=== PATIENT | male | born 1950 | race Caucasian/White ===

== ENCOUNTER 2018-03-10 17:37 | Emergency (ER) | payer MEDICARE, BC ==
[2018-03-10] MEDS ORDERED: NS 0.9% 1000 ML* 2,000 ML IV ONE (18:50)
--- NOTE | 2018-03-10 19:15 | ED ---
Abdominal Pain/Male - HPI Summary HPI Summary: Pt is a 67 y/o M c/o constant lower abdominal pain varying in intensity and bowel problems. He was woken up at 0415 this AM with the Sx. He stated drank bad water 2 weeks prior to visit and has been having Sx since. Associated Sx: bloated, loose bowel, increased frequency. Denies: fever. 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 PSHx: No abd surgeries. He is unable to visit the GI until April. He has been seeing PCP for 2 weeks regarding these problems. Notes he only had an egg and toast to eat today and has produced stool 10x. - History of Current Complaint Chief Complaint: EDAbdPain Stated Complaint: ABD PAIN Time Seen by Provider: 03/10/18 18:49 Hx Obtained From: Patient Onset/Duration: Sudden Onset, Lasting Weeks - 2, Still Present, Worse Since - This AM Timing: Constant Severity Currently: Moderate Pain Intensity: 6 Pain Scale Used: 0-10 Numeric Location: Suprapubic - lower ad, Umbilical Aggravating Factor(s): Food Alleviating Factor(s): OTC Analgesics, Other: - Polmedo berries, Ellis juice Associated Signs And Symptoms: Positive: Other - loose stool. Negative: Fever - Allergies/Home Medications Allergies/Adverse Reactions: Allergies Allergy/AdvReac Type Severity Reaction Status Date / Time Penicillins Allergy Rash Verified 03/10/18 17:42 PMH/Surg Hx/FS Hx/Imm Hx Endocrine/Hematology History: Denies: Hx Diabetes Cardiovascular History: Reports: Hx Hypertension Denies: Hx Congestive Heart Failure Neurological History: Reports: Other Neuro Impairments/Disorders - PSYCH HX Infectious Disease History: No Infectious Disease History: Denies: Traveled Outside the [place] in Last 30 Days - Family History Known Family History: Positive: Hypertension - Social History Occupation: Retired Lives: With Family Alcohol Use: None Substance Use Type: Reports: None Smoking Status (MU): Never Smoked Tobacco Review of Systems Negative: Fever Positive: Abdominal Pain - lower Positive: frequency - 10x today, incontinence - loose stool, other - Loose stool All Other Systems Reviewed And Are Negative: Yes Physical Exam - Summary Physical Exam Summary: Appearance: Well-appearing, Well-nourished, lying in bed comfortably Skin: Warm, dry, no obvious rash Eyes: sclera anicteric, no conjunctival pallor ENT: mucous membranes moist, pharynx appears normal Neck: Supple, nontender Respiratory: Clear to auscultation, no signs of respiratory distress Cardiovascular: Normal S1, S2. No murmurs. Normal distal pulses in tibial and radial bilaterally. small hemmeroid: not thrombosed Abdomen: Soft, nontender, normal active bowel sounds present Musculoskeletal: Normal, Strength/ROM Intact Neurological: A&Ox3, awake and alert, mentation is normal, speech is fluent and appropriate Psychiatric: affect is normal, does not appear anxious or depressed Triage Information Reviewed: Yes Vital Signs On Initial Exam: Initial Vitals Temp Pulse Resp BP Pulse Ox 96.8 F 72 18 156/91 99 03/10/18 17:39 03/10/18 17:39 03/10/18 17:39 03/10/18 17:39 03/10/18 17:39 Vital Signs Reviewed: Yes Diagnostics - Vital Signs Vital Signs Temp Pulse Resp BP Pulse Ox 03/10/18 17:39 96.8 F 72 18 156/91 99 - Laboratory Result Diagrams: 03/10/18 19:05 03/10/18 19:05 Lab Statement: Any lab studies that have been ordered have been reviewed, and results considered in the medical decision making process. Abdominal Pain Fem Course/Dx - Course Course Of Treatment: 67 y/o man with somewhat vague intermittent lower abdominal /rectal discomfort, benign abdominal exam. Stool studies are pending from 2 days ago. He has not had dysenteric symptoms (no fever, watery/bloody diarrhea, crampy pain). His discomfort is mainly a feeling of incomplete emptying. Mainly he seems worried about the possibility of colon cancer. He had a colonoscopy 8 years ago, and I explained the best test for this concern is colonoscopy. We talked about doing a CT scan, but in the absence of a suspicion for bowel obstruction, intra-abdominal infection or other entity that would be shown on CT scan, I did not think this was likely to be helpful, and the patient is in agreement. - Diagnoses Differential Diagnosis/HQI/PQRI: Bowel Obstruction, Constipation, Diverticulitis , Ischemic Bowel Provider Diagnoses: Abdominal pain Discharge - Sign-Out/Discharge Documenting (check all that apply): Patient Departure - Discharge Plan Condition: Good Disposition: HOME Prescriptions: Diphenoxylat/Atrop 2.5-0.025M* [Lomotil TAB*] 1 tab PO QID PRN #20 tab MDD 4 tabs PRN Reason: Diarrhea Patient Education Materials: Abdominal Pain (ED) Referrals: Emeterio Olivarez MD [Primary Care Provider] - Additional Instructions: The best test for suspected colon cancer is a colonoscopy, so followup with the outer diameter grinder is important. If your pain gets much worse or you develop new symptoms like vomiting or fever we should see you back here sooner. - Billing Disposition and Condition Condition: GOOD Disposition: Home
[2018-03-10 19:19] LABS: ABS Basophils 0.1 10^3/ul (0-0.2); ABS Eosinophils 0 10^3/ul (0-0.6); ABS Monocytes 0.8 10^3/ul (0-0.8); ABS Neutrophils 5.1 10^3/ul (1.5-7.7); ABS Nucleated RBC 0 10^3/ul; Eosinophil % 0.4 % (0-6); Hematocrit 43 % (42-52); Hemoglobin 14.8 g/dl (14.0-18.0); Lymphocyte % 14.5 % (25-47); Mean Corpuscular HGB Conc 34 g/dl (31-36); Mean Corpuscular Hemoglobin 31 pg (27-31); Mean Corpuscular Volume 91 fL (80-94); Mean Platelet Volume 9.6 um3 (7.4-10.4); Nucleated Red Blood Cells % 0; Platelet Count 184 10^3/ul (150-450); Red Blood Count 4.72 10^6/ul (4.00-5.40); Red Cell Distribution Width 13 % (10.5-15)
[2018-03-10 19:39] LABS: EGFR Non-African American 95.1 (>60)
[2018-03-10 20:19] VITALS: BP 134/83
== END 2018-03-10 20:18 | disposition home or self-care (01) ==
LOC: ED 17:37
DX: R10.30 Lower abdominal pain, unspecified (principal); Z87.19 Personal history of other diseases of the digestive system; Z88.0 Allergy status to penicillin
CPT/HCPCS: 36415; 80053; 83690; 85025; 96360; 99282

== ENCOUNTER 2019-06-08 03:55 | Emergency (ER) | payer MEDICARE, BC ==
--- OUTSIDE RECORDS SUMMARY | 2019-06-08 04:02 | XMS REPORT | Continuity of Care Document ---
:1950 External Reference #:[id number] Author Name Austin Ash M.D. 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 Onset: 11/24/2010 Emphysematous bleb of lung Emeterio Olivarez M.D.,FACP Onset: 02/11/2015 Note: incidental C-reactive protein abnormal Emeterio Olivarez M.D.,FACP Onset: 02/11/2015 Note: hsCRP Microscopic hematuria Emeterio Olivarez M.D.,FACP Onset: 02/11/2015 Note: had cysto Mixed hyperlipidemia Emeterio Olivarez M.D.,FACP Onset: 12/19/2016 Ex-smoker Emeterio Olivarez M.D.,FACP Onset: 05/09/2018 Anxiety disorder Emeterio Olivarez M.D.,FACP Onset: 05/17/2018 Social History Type Date Description Comments Sex Unknown Tobacco Use Start: Unknown End: Former Cigarette Smoker started at age 14 and Unknown quit cigarettes at age 35 Cigarette Use Pack Years - 20 Smoking Status Reviewed: 10/01/19 Former Cigarette Smoker started at age 14 and quit cigarettes at age 35 ETOH Use 09/29/2016 Denies alcohol use Tobacco Use Start: Unknown End: Patient is a former Unknown smoker Exercise 09/29/2016 Exercises regularly Bikes 30+ miles during Type/Frequency summer. Gym 2-3x/weekly during winter Allergies, Adverse Reactions, Alerts Active Allergies Reaction Severity Comments Date Penicillin Urticaria Moderate 04/04/2018 Inactive Allergies NKDA 02/06/2011 Medications Active Medications SIG Qnty Indications Ordering Provider Date Valsartan-Hydrochloro take one tablet 30tabs Austin Ash, 09/24/2018 thiazide by mouth every M.D. 80-12.5mg day Tablets B-12 1 by mouth every Unknown 1000mcg day over the counter Red Rice Yeast Unknown Immunizations CPT Code Status Date Vaccine Lot # [id number] Given 09/29/2016 Pneumonia Vaccine [id number] 52940 Given 07/01/2014 Pneumococcal Conjugate Vaccine 13 Valent For [id number] Intramuscular Use 38051 Given 07/01/2014 Flu Vaccine Split Virus Preservative Free For [id number] Indiv 3Yr Older [id number] Refused 02/11/2015 Zoster (Zostavax) Vital Signs Date Vital Result Comment 05/27/2019 9:45am Height 65 inches 5'5" Weight 188.00 lb Heart Rate 60 /min BP Systolic Sitting 158 mmHg BP Diastolic Sitting 87 mmHg BMI (Body Mass Index) 31.3 kg/m2 10/15/2018 4:22pm Height 65 inches 5'5" Weight 168.00 lb Heart Rate 75 /min BP Systolic Sitting 152 mmHg BP Diastolic Sitting 87 mmHg Body Temperature 99.1 F BMI (Body Mass Index) 28.0 kg/m2 Results Description No Information Available Procedures Date Code Description Status 03/20/2018 24303508 Colonoscopy Completed 08/03/2010 94337732 Colonoscopy Completed Medical Devices Description No Information Available Encounters Description No Information Available Assessments Date Code Description Provider 05/27/2019 M25.511 Pain in right shoulder Austin Ash M.D. Plan of Treatment 05/27/2019 - Austin Ash M.D.M25.511 Pain in right shoulderComments:Blunt trauma to R shoulder 3 days ago with pain over the area, thanh the AC joint. Minimal skin abrasions, no swelling/bruising. Appears to be a soft tissue injury, but shoulder x-ray advised. Continue rest, local warmth, and analgesics as needed. Functional Status Description No Information Available Mental Status Description No Information Available Referrals Description No Information Available
[2019-06-08] MEDS ORDERED: NS 0.9% 1000 ML** 1,000 ML IV ONE ×2 (04:14→06:09)
[2019-06-08] MEDS ORDERED: Ondansetron INJ* 2 MG/ML VIAL IV ONE (04:28)
[2019-06-08 04:50] LABS: ABS Basophils 0.1 10^3/ul (0-0.2); ABS Eosinophils 0.1 10^3/ul (0-0.6); ABS Lymphocytes 1.7 10^3/ul (1.0-4.8); ABS Monocytes 0.7 10^3/ul (0-0.8); Eosinophil % 0.7 %; Hematocrit 43 % (42-52); Hemoglobin 14.5 g/dL (14.0-18.0); Lymphocyte % 13.8 %; Mean Corpuscular HGB Conc 34 g/dL (31-36); Mean Corpuscular Hemoglobin 31 pg (27-31); Mean Corpuscular Volume 92 fL (80-94); Mean Platelet Volume 9.8 fL (7.4-10.4); Nucleated Red Blood Cells % 0.1; Platelet Count 190 10^3/uL (150-450); Red Blood Count 4.63 10^6 /uL (4.18-5.48); Red Cell Distribution Width 13 % (10-15); White Blood Count 12.6 10^3/uL (3.5-10.8)
[2019-06-08 04:55] LABS: INR 0.91 (0.82-1.09)
[2019-06-08 05:11] LABS: Albumin/Globulin Ratio 1.5 (1-3); BUN/Creatinine Ratio 36.4 (8-20); C Reactive Protein 4.36 mg/L (<8.01); Calcium 9.2 mg/dL (8.6-10.3); EGFR African American 121.6 (>60); EGFR Non-African American 100.5 (>60); Globulin 2.6 g/dL (2-4); Potassium 3.6 mmol/L (3.5-5.0); Total Bilirubin 0.4 mg/dL (0.2-1.0); Total Protein 6.6 g/dL (6.4-8.9)
--- NOTE | 2019-06-08 05:13 | ED ---
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 He notes that he was trying to sleep when he got up to use the restroom and the room started to spin. He rates his current pain intensity a 0/10. No alleviating factors noted. His nausea is aggravated by lying down. He also reports diaphoresis, diarrhea, chills, and shakiness but denies any vomiting, vision changes, tingling, numbness, or weakness. He has Hx of COPD. - History Of Current Complaint Chief Complaint: EDDizziness Stated Complaint: SWEATS, FEVER Time Seen by Provider: 06/08/19 04:03 Hx Obtained From: Patient Onset/Duration: Suddenly Timing: Hours Severity Initially: Moderate Severity Currently: Moderate Character: Room Spinning Aggravating Factor(s): Supine To Erect, Other - lying down Alleviating Factor(s): Nothing Associated Signs And Symptoms: Positive: Nausea, Diarrhea, Diaphoresis, Chills, Other: - pos - shaking, dizziness "room spinning", neg - tingling, numbness, weakness. Negative: Vomiting, Visual Changes - Allergies/Home Medications Allergies/Adverse Reactions: Allergies Allergy/AdvReac Type Severity Reaction Status Date / Time Penicillins Allergy Rash Verified 06/08/19 04:01 PMH/Surg Hx/FS Hx/Imm Hx Endocrine/Hematology History: Denies: Hx Diabetes Cardiovascular History: Reports: Hx Hypertension Denies: Hx Congestive Heart Failure Sensory History: Denies: Hx Legally Blind, Hx Deafness Opthamlomology History: Denies: Hx Legally Blind EENT History: Denies: Hx Deafness Neurological History: Reports: Other Neuro Impairments/Disorders - PSYCH HX - Surgical History Surgical History: None Surgery Procedure, Year, and Place: none Infectious Disease History: No Infectious Disease History: Denies: Traveled Outside the [place] in Last 30 Days - Family History Known Family History: Positive: Hypertension - Social History Alcohol Use: None Substance Use Type: Reports: Marijuana Smoking Status (MU): Never Smoked Tobacco Review of Systems - ROS Summary Review of Systems Summary: Home Medications Medication Instructions Recorded Confirmed Type Cyanocobalamin TAB* [Vitamin B12 500 mcg PO DAILY 12/29/13 03/29/16 History TAB*] Valsartan/HCTZ 80/12.5(NF) [Diovan 1 tab PO DAILY 12/29/13 03/29/16 History Hct 80/12.5(NF)] Tobramycin/Dexameth OPTH.SUSP* 1 drop LEFT EYE Q4H #1 btl 03/29/16 Rx [Tobradex 0.3-0.1%*] diPHENhydraMINE PO* [Benadryl PO*] 25 mg PO PRN 03/29/16 History Diphenoxylat/Atrop 2.5-0.025M* 1 tab PO QID PRN #20 tab MDD 4 tabs 03/10/18 Rx [Lomotil TAB*] Positive: Chills, Skin Diaphoresis Eyes: Other - neg - visual changes Positive: Diarrhea, Nausea. Negative: Vomiting Neurological: Other - pos - shakiness, dizziness, neg - tingling Negative: Weakness, Numbness All Other Systems Reviewed And Are Negative: Yes Physical Exam - Summary Physical Exam Summary: General: Elderly male. Diaphoretic. Appears in moderate discomfort, shaking. HEENT: Normocephalic, Atraumatic. Eyes: Conjuctiva normal, PERRL. Ears: TMs within normal limits. Nares: (-) discharge, (-) erythema. Oropharynx: Clear, mucous membranes moist, (-) exudates. Neck: Soft, FROM, (-) lymphadenopathy, (-) thyromegaly, (-) JVD. Cardiovascular: Normal sinus rhythm, (-) murmur. Lungs: Clear to auscultation bilaterally (-) wheezes, (-) rales, (-) rhonchi. Abdomen: Soft, non-tender, non-distended, (-) organomegaly, normal bowel sounds. Back: (-) CVA tenderness Extremities: No edema. Skin: Warm, dry, (-) rash. Neuro: Alert and oriented x3, no focal deficits. Psychiatric: Mood normal, affect normal. Triage Information Reviewed: Yes Vital Signs On Initial Exam: Initial Vitals Temp Pulse Resp BP Pulse Ox 94.5 F 64 18 146/85 100 06/08/19 03:58 06/08/19 03:58 06/08/19 03:58 06/08/19 03:58 06/08/19 03:58 Vital Signs Reviewed: Yes Procedures - Sedation Patient Received Moderate/Deep Sedation with Procedure: No Diagnostics - Vital Signs Vital Signs Temp Pulse Resp BP Pulse Ox 06/08/19 04:47 67 18 127/74 99 06/08/19 04:17 67 30 140/76 100 06/08/19 04:15 99 06/08/19 04:12 60 100 06/08/19 03:58 94.5 F 64 18 146/85 100 - Laboratory Lab Results: Lab Results 06/08/19 06/08/19 Range/Units 04:43 04:43 WBC 12.6 H (3.5-10.8) 10^3/uL RBC 4.63 (4.18-5.48) 10^6 /uL Hgb 14.5 (14.0-18.0) g/dL Hct 43 (42-52) % MCV 92 (80-94) fL MCH 31 (27-31) pg MCHC 34 (31-36) g/dL RDW 13 (10-15) % Plt Count 190 (150-450) 10^3/uL MPV 9.8 (7.4-10.4) fL Neut % (Auto) 79.5 % Lymph % (Auto) 13.8 % Toole % (Auto) 5.5 % Eos % (Auto) 0.7 % Baso % (Auto) 0.5 % Absolute Neuts (auto) 10.0 H (1.5-7.7) 10^3/ul Absolute Lymphs (auto) 1.7 (1.0-4.8) 10^3/ul Absolute Monos (auto) 0.7 (0-0.8) 10^3/ul Absolute Eos (auto) 0.1 (0-0.6) 10^3/ul Absolute Basos (auto) 0.1 (0-0.2) 10^3/ul Absolute Nucleated RBC 0.0 10^3/ul Nucleated RBC % 0.1 INR (Anticoag Therapy) 0.91 (0.82-1.09) Result Diagrams: 06/08/19 04:43 06/08/19 04:43 Lab Statement: Any lab studies that have been ordered have been reviewed, and results considered in the medical decision making process. - Radiology CXR Radiology Interpretation Completed By: ED Physician Summary of Radiographic Findings: No infiltrate, no pleural effusion, no pneumothorax, pending official report. - EKG 0417 Cardiac Rate: NL EKG Rhythm: Sinus Rhythm - 64 bpm Summary of EKG Findings: EKG @ 0415 reveals NSR @ 64 bpm. No STEMI. 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 Test results normal except for WBC 12.6, Absolute Neuts 10.0, BUN 28, BUN/Creatinine 36.4, Glucose 189, Lactic Acid. A CXR reveals: No infiltrate, no pleural effusion, no pneumothorax, pending official report. An EKG @ 0415 reveals NSR @ 64 bpm. No STEMI. Final Dx are dizziness and diarrhea. The pt will be a sign out to Dr. Lawrence at the 06/08/2019 0700 shift change pending Lactic acid re-evaluation after medications (meclizine) and disposition. - Diagnoses Provider Diagnoses: Dizziness, Diarrhea Discharge ED - Sign-Out/Discharge Documenting (check all that apply): Sign-Out Patient Signing out patient TO: Austin Lawrence - Discharge Plan Condition: Stable Disposition: HOME Patient Education Materials: Dizziness (ED) Referrals: Austin Ash MD [Primary Care Provider] - 3 Days - Billing Disposition and Condition Condition: STABLE Disposition: Home - Attestation Statements Document Initiated by Belem: Yes Documenting Scribe: Black Jim Provider For Whom Belem is Documenting (Include Credential): Nydia Llanes MD Scribe Attestation: Black Johnson, scribed for Nydia Llanes MD on 06/08/19 at 0712. Scribe Documentation Reviewed: Yes Provider Attestation: The documentation as recorded by the scribeBlack accurately reflects the service I personally performed and the decisions made by me, Nydia Llanes MD Status of Scribe Document: Viewed
[2019-06-08 06:37] LABS: Urine Appearance Clear; Urine Bilirubin Negative (Negative); Urine Blood Negative (Negative); Urine Color Yellow; Urine Glucose Negative (Negative); Urine Ketones Trace (Negative); Urine Nitrite Negative (Negative); Urine Protein Negative (Negative); Urine Specific Gravity 1.024 (1.010-1.030); Urine Urobilinogen Negative (Negative)
[2019-06-08] MEDS ORDERED: Meclizine TAB* 12.5 MG PO ONE (06:51)
--- NOTE | 2019-06-08 07:20 | ED ---
Progress - Progress Note Progress Note: The pt is a sign out to Dr. Lawrence from Dr. Llanes at the 06/08/2019 0700 shift change pending a 2nd troponin and disposition. Course/Dx - Course Course Of Treatment: This patient was signed out to Dr. Llanes at shift change. She requested to follow-up the Lactic acid. Second lactic acid is equal to 2. Patient reports that his dizziness resolved. He has not had any other episodes of diarrhea. Therefore the patient was discharged home with follow-up with PCP. At this point I discussed all the findings and test results with the patient. He was instructed to return to the emergency room immediately if any of the symptoms return or worsen. Patient understand and agree. Neurological exam before discharge: Patient is alert and oriented x 3. No acute neurological deficits. Patient's vital signs are stable. Patient is to follow up with CPP in the next 2 3 days. They understand and agree. Plan of care was discussed with the patient and patient understands and agrees with the plan of care. All questions were answered at patient satisfaction. There were no further complaints or concerns. - Diagnoses Provider Diagnoses: Diarrhea, Vertigo Discharge ED - Sign-Out/Discharge Documenting (check all that apply): Receiving Sign-Out Receiving patient FROM: Nydia Llanes - Discharge Plan Condition: Stable Disposition: HOME Prescriptions: Meclizine TAB* [Antivert 12.5 TAB*] 25 mg PO TID PRN #30 tab PRN Reason: Vertigo Ondansetron TAB* [Zofran 4 MG Tab*] 4 mg PO Q6H PRN #10 tab PRN Reason: Nausea Patient Education Materials: Vertigo (ED), Acute Diarrhea (ED) Referrals: Austin Ash MD [Primary Care Provider] - 3 Days Additional Instructions: FOLLOW UP WITH YOUR PRIMARY CARE PROVIDER WITHIN 3 DAYS. RETURN TO THE ED FOR ANY WORSENING OR NEW SYMPTOMS. - Billing Disposition and Condition Condition: STABLE Disposition: Home - Attestation Statements Document Initiated by Scribe: Yes Documenting Scribe: Bennie Wyatt Provider For Whom Scribe is Documenting (Include Credential): Austin Lawrence MD Scribe Attestation: Bennie Johnson, scribed for Austin Lawrence MD on 06/08/19 at 1826. Scribe Documentation Reviewed: Yes Provider Attestation: The documentation as recorded by the scribeBennie accurately reflects the service I personally performed and the decisions made by me, Austin Lawrence MD Status of Belem Document: Viewed
[2019-06-08 10:13] VITALS: BP 154/92
== END 2019-06-08 10:12 | disposition home or self-care (01) ==
LOC: ED 03:55
DX: R42 Dizziness and giddiness (principal); R19.7 Diarrhea, unspecified; Z88.0 Allergy status to penicillin; I10 Essential (primary) hypertension; Z79.899 Other long term (current) drug therapy
CPT/HCPCS: 36415; 71045; 80053; 81003; 83605; 84484; 85025; 85610; 86140; 87040; 93005; 96361; 96374; 99284; A9270-GY; J2405